=== PATIENT | male | born 1950 | race Caucasian/White ===

== ENCOUNTER 2019-10-18 18:02 | Emergency (ER) | payer MEDICARE ==
[~2019-10-18] VITALS: Ht 170.2 cm; Wt 80.0 kg
--- NOTE | 2019-10-18 18:53 | NUR ---
TASK RN: TREMORS ARE GETTING STRONGER. PT STATES BEFORE HE COULD CONTROL THEM AND NOW HE CANNOT. C/O INCREASED PAIN IN EXTREMITIES AND HEAD. NEUROLOGIST APPOINTMENT SCHEDULED FOR FRIDAY
[2019-10-18] MEDS ORDERED: ONDANSETRON ODT 4 MG ONE (18:59)
[2019-10-18] MEDS ORDERED: OXYcodone/APAP 10/325MG TABLET ONE (19:00)
[2019-10-18] MEDS ORDERED: FENTANYL PF 100 MCG/2ML ONE (19:00)
[2019-10-18] MEDS ORDERED: OXYcodone/APAP 10/325MG TABLET PO ONE (19:00)
[2019-10-18] MEDS ORDERED: FENTANYL PF 100 MCG/2ML IM ONE (19:00)
[2019-10-18] MEDS ORDERED: ONDANSETRON ODT 4 MG PO ONE (19:00)
[2019-10-18 19:02] LABS: BASOPHILS # (AUTO) 0.11 x10^3/uL (0-0.1); BASOPHILS % (AUTO) 1 % (0-1); EOSINOPHILS # (AUTO) 0.28 x10^3/uL (0-0.4); EOSINOPHILS % (AUTO) 3 % (1-7); LYMPHOCYTES % (AUTO) 26 % (22-44); MD NO; MEAN CORPUSCULAR HEMOGLOBIN 29.3 pg (27.5-34.5); MEAN CORPUSCULAR HGB CONC 33.2 g/dL (33.2-36.2); MEAN PLATELET VOLUME 7.7 fL (7.4-10.4); MONOCYTES % (AUTO) 11 % (2-9); NEUTROPHILS # (AUTO) 5.83 x10^3/uL (1.8-6.8); NEUTROPHILS % (AUTO) 59 % (42-75); PLATELET COUNT 257 x10^3/uL (130-400); RED BLOOD COUNT 5.38 x10^6/uL (4.38-5.82); RED CELL DISTRIBUTION WIDTH 13.4 % (9.4-14.8)
--- NOTE | 2019-10-18 19:11 | NUR ---
TASK RN: PT MEDICATED TO MAR. PT EDUCATED TO USE CALL LIGHT IF HE NEEDS TO GET UP. PT COMMUNICATED UNDERSTANDING. CALL LIGHT WITHIN REACH. PT ON BP, CARDIAC AND O2 MONITORS. AT BEDSIDE. BED RAILS UP.
[2019-10-18 19:13] LABS: ALANINE AMINOTRANSFERASE 12 U/L (12-78); ALBUMIN 3.6 g/dL (3.4-5.0); ANION GAP 5 mmol/L (5-15); CALCIUM 8.5 mg/dL (8.5-10.1); CHLORIDE 111 mmol/L (98-107); CREATININE 1.29 mg/dL (0.7-1.3)
[2019-10-18 19:16] LABS: ALKALINE PHOSPHATASE 119 U/L (45-117); BILIRUBIN,TOTAL 0.4 mg/dL (0.2-1.0); TOTAL PROTEIN 7.4 g/dL (6.4-8.2)
--- NOTE | 2019-10-18 19:41 | NUR ---
patient reports he is pain free at this time, resting comfortably. patient and family member at bedside is UTD on plan
--- NOTE | 2019-10-18 21:54 | NUR ---
PATIENT CONTINUES TO BE PAIN FREE, HE REPORTS HIS SHAKES ARE GETTING SLIGHLTY WORSE BUT HE HAS NOT TAKEN HIS HOME [facility] MEDICATIONS YET.
[2019-10-18 22:21] VITALS: BP 130/83
[2019-10-18] MEDS ORDERED: CARBIDOPA/LEVODOPA 25 MG/250 MG TABLET PO ONE (22:30)
== END 2019-10-18 22:39 | disposition home or self-care (01) ==
LOC: ED 21:21
DX: R25.1 Tremor, unspecified (principal); R53.83 Other fatigue; I48.92 Unspecified atrial flutter; I48.91 Unspecified atrial fibrillation
CPT/HCPCS: 36415; 71045; 80053; 83605; 83690; 83880; 85025; 93005; 96372; 99285; J3010; Q0162

== ENCOUNTER 2020-10-11 09:00 | Emergency (ER) | payer MEDICARE ==
[~2020-10-11] VITALS: Ht 175.3 cm; Wt 82.6 kg
--- NOTE | 2020-10-11 10:53 | NUR ---
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
[2020-10-11] MEDS ORDERED: DIAZEPAM 5 MG TABLET PO ONE (11:00)
[2020-10-11] MEDS ORDERED: OXYcodone/APAP 5/325MG TABLET PO ONE (11:00)
--- NOTE | 2020-10-11 11:03 | NUR ---
OVER THE LAST THREE DAYS I HAVE HAD INCRESING PAIN IN BOTH OF MY ARMS AND MY LEFT LEG. 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 erp to bedside No fevers/cough/ent symptoms
[2020-10-11 11:26] LABS: BASOPHILS % (AUTO) 1 % (0-1); EOSINOPHILS % (AUTO) 1 % (1-7); LYMPHOCYTES % (AUTO) 16 % (22-44); MEAN CORPUSCULAR HEMOGLOBIN 29.4 pg (27.5-34.5); MEAN CORPUSCULAR HGB CONC 33.4 g/dL (33.2-36.2); MEAN PLATELET VOLUME 7.3 fL (7.4-10.4); MONOCYTES % (AUTO) 10 % (2-9); NEUTROPHILS % (AUTO) 72 % (42-75); PLATELET COUNT 260 x10^3/uL (130-400); RED BLOOD COUNT 5.49 x10^6/uL (4.38-5.82); RED CELL DISTRIBUTION WIDTH 13.7 % (9.4-14.8)
[2020-10-11] MEDS ORDERED: DIAZEPAM 5 MG TABLET ONE (11:27)
[2020-10-11] MEDS ORDERED: OXYcodone/APAP 5/325MG TABLET ONE (11:28)
[2020-10-11] MEDS ORDERED: ONDANSETRON ODT 4 MG ONE (11:31)
[2020-10-11 11:36] LABS: ALBUMIN 3.9 g/dL (3.4-5.0); ANION GAP 8 mmol/L (5-15); CALCIUM 9.3 mg/dL (8.5-10.1); CHLORIDE 111 mmol/L (98-107); CREATININE 1.19 mg/dL (0.7-1.3)
[2020-10-11 11:38] LABS: CREATINE KINASE, TOTAL 155 U/L (39-308)
--- NOTE | 2020-10-11 11:45 | NUR ---
Medicated per emar for generalized muscle aches rated at 8/10. updated on estimated poc
[2020-10-11] MEDS ORDERED: ONDANSETRON ODT 4 MG PO ONE (12:00)
--- NOTE | 2020-10-11 12:49 | NUR ---
With reassessment pain completely improved "i wish i felt this good all the time." ERP made aware Patient updated on estimated poc (awaiting urine results)
[2020-10-11 12:56] LABS: MICROSCOPIC NOT IND
--- NOTE | 2020-10-11 12:58 | NUR ---
REPORT FROM RUTH, ASSUME CARE OF PT AT THIS TIME.
[2020-10-11 13:01] VITALS: BP 157/70
--- NOTE | 2020-10-11 13:04 | NUR ---
report to lila lutz
--- NOTE | 2020-10-11 13:07 | NUR ---
UA RESULTS BACK, PT FOR RECHECK.
== END 2020-10-11 14:04 | disposition home or self-care (01) ==
LOC: ED 13:35
DX: G20 Parkinson's disease (principal); M79.605 Pain in left leg
CPT/HCPCS: 36415; 80048; 81003; 82040; 82550; 85025; 99284; Q0162